=== PATIENT | male | born 1975 | race Caucasian/White ===

== ENCOUNTER 2018-11-01 02:21 | Emergency (ER) | payer OTHER, BC ==
[~2018-11-01] VITALS: Ht 182.9 cm; Wt 112.9 kg
[2018-11-01 02:29] VITALS: Ht 182.9 cm; Wt 112.9 kg
[2018-11-01 05:04] VITALS: BP 117/81
== END 2018-11-01 05:04 | disposition home or self-care (01) ==
LOC: ED 02:21
DX: L30.9 Dermatitis, unspecified (principal); Z88.6 Allergy status to analgesic agent; Z88.8 Allergy status to other drugs, medicaments and biological substances
CPT/HCPCS: J7512

== ENCOUNTER 2019-02-03 11:36 | Emergency (ER) | payer OTHER, BC ==
[~2019-02-03] VITALS: Ht 185.4 cm; Wt 113.4 kg
[2019-02-03 11:39] VITALS: Ht 185.4 cm; Wt 113.4 kg
[2019-02-03 13:48] VITALS: BP 140/80
== END 2019-02-03 13:47 | disposition home or self-care (01) ==
LOC: ED 11:36
DX: S16.1XXA Strain of muscle, fascia and tendon at neck level, initial encounter (principal); R20.0 Anesthesia of skin; G89.29 Other chronic pain; Z88.6 Allergy status to analgesic agent; V49.69XA Unspecified car occupant injured in collision with other motor vehicles in traffic accident, initial encounter; Y93.89 Activity, other specified; Y92.488 Other paved roadways as the place of occurrence of the external cause; Y99.8 Other external cause status
CPT/HCPCS: J3010

== ENCOUNTER 2019-04-30 01:50 | Emergency (ER) | payer OTHER, BC ==
[~2019-04-30] VITALS: Ht 185.4 cm; Wt 112.0 kg
[2019-04-30 02:00] VITALS: Ht 185.4 cm; Wt 112.0 kg
[2019-04-30 07:17] VITALS: BP 128/85
== END 2019-04-30 07:17 | disposition home or self-care (01) ==
LOC: ED 01:50
DX: J32.9 Chronic sinusitis, unspecified (principal); Z88.6 Allergy status to analgesic agent
CPT/HCPCS: J1200; J2270; J2765; J7030

== ENCOUNTER 2019-09-03 07:50 | Emergency (ER) | payer OTHER, BC ==
[~2019-09-03] VITALS: Ht 182.9 cm; Wt 110.7 kg
[2019-09-03 07:57] VITALS: Ht 182.9 cm; Wt 110.7 kg
[2019-09-03 10:50] VITALS: BP 142/71
== END 2019-09-03 11:00 | disposition home or self-care (01) ==
LOC: ED 07:50
DX: G43.909 Migraine, unspecified, not intractable, without status migrainosus (principal)
CPT/HCPCS: J0780; J2270; J2405; J7030